=== PATIENT | female | born 1965 ===

== ENCOUNTER 2021-02-10 06:39 | Day surgery (SDC) | payer OTHER ==
[~2021-02-10 06:39] MED LIST: ATACAND16 MG PO
== END 2021-02-10 15:45 | disposition home or self-care (01) ==
LOC: CIR.AMB 06:39
PROVIDERS: ATTEND Colon & Rectal Surgery
DX: K62.0 Anal polyp (principal); K64.4 Residual hemorrhoidal skin tags; Z20.822 Contact with and (suspected) exposure to COVID-19